=== PATIENT | male | born 1960 | race African-American/Black ===

== ENCOUNTER → 2017-02-08 | Outpatient (CLI) | payer BC ==
[2015-10-10 08:10] VITALS: BP 138/90
[~2017-02-08] MED LIST: AMLO1TAB14 PO; ASPI-482 PO; CYAN10005 PO; GABA-585 PO; GABA-586 PO; GLIM4TAB2 PO; IOHEXOL 240 MG/ML 50ML VIAL. PO ONE; METF10002 PO; NAPR500T8 PO; SAXA5TAB PO; SIMV40TA3 PO
--- NOTE | 2017-02-08 11:40 | RAD ---
Examination: CT chest abdomen pelvis without IV contrast and with oral contrast History: History of follow-up colon cancer Comparison: 01/23/2016 Technique: Axial CT images of the chest abdomen pelvis were performed without IV contrast and with oral contrast. PQRS Compliance Statement: One or more of the following individualized dose reduction techniques were utilized for this examination: 1. Automated exposure control 2. Adjustment of the mA and/or kV according to patient size 3. Use of iterative reconstruction technique Findings: The visualized thyroid gland grossly appears unremarkable. The central airways are patent. Diffuse coronary artery calcifications identified. No evidence of pericardial effusion. Calcified granuloma identified in the left lower lobe lung grossly appears similar to prior exam, otherwise the lungs are clear. No evidence of free air noted in the abdomen. The evaluation of solid organs is limited lack of IV contrast. The visualized noncontrasted liver, spleen, and adrenals grossly appears unremarkable. The gallbladder is mildly distended. The stomach is mildly distended. The pancreas demonstrates mild fatty atrophic changes. The small bowel is nondilated. The appendix is normal. Feces and gas noted in the colon. There is some minimal fat stranding identified in the region of the rectum probably prior treatment changes grossly similar to prior exam. The gallbladder is mildly distended. No radiologically significant retroperitoneal or pelvic lymphadenopathy visualized. No evidence of intrarenal collecting system calculi or hydronephrosis. Mild degenerative disease identified in thoracic spine. Impression: 1. No evidence of metastatic disease. 2. Mild stranding identified about the rectum, grossly similar to prior exam likely prior treatment changes.
== END | disposition home or self-care (01) ==
LOC: CT 09:30
PROVIDERS: ATTEND Internal Medicine Hematology & Oncology
DX: C20 Malignant neoplasm of rectum (principal)
CPT/HCPCS: 71250; 74176

== ENCOUNTER → 2020-04-08 | Outpatient (CLI) | payer BC ==
[2017-09-26 16:30] VITALS: BP 175/100
[~2020-04-08] MED LIST changes: +CYAN-25 PO; -CYAN10005 PO; -GABA-586 PO; +GABA300C18 PO; -GLIM4TAB2 PO; +GLIM4TAB8 PO; +HYDR-2145 PO; -IOHEXOL 240 MG/ML 50ML VIAL. PO ONE; -METF10002 PO; +METF10007 PO; +SIMV40TA18 PO; -SIMV40TA3 PO
--- NOTE | 2020-04-08 12:22 | RAD ---
MR#: [id number] Date of Study: 04/08/2020 Ordering Physician: KIANA ALFORD, Referring Physician: KIANA ALFORD, Tech: AIMEE Light, RDMS, RVT APPROVED REPORT Patient Location: OUT-PATIENT Indications PAD, HTN, DM Findings Bilateral ankle-brachial indices were obtained. Right brachial 130, left brachial 117 Right ankle 142, left ankle 140 Right GILMAR 1.1, left GILMAR 1.1 Critical Notification Critical Value: No <Conclusion> 1. Normal bilateral GILMAR Signed by : Kiana Alford, Electronically Approved : 04/08/2020 12:21:27
--- NOTE | 2020-04-08 12:23 | RAD ---
MR#: [id number] Date of Study: 04/08/2020 Ordering Physician: KIANA ALFORD, Referring Physician: KIANA ALFORD, Tech: AIMEE Light, RDMS, Rvt APPROVED REPORT Patient Location: OUT-PATIENT Laterality:Bilateral Indications PAD, DM, HTN Doppler Spectral Velocity Analysis Right Left pCCA 87/15 cm/spCCA 119/26 cm/s mCCA 87/23 cm/smCCA 97/22 cm/s dCCA 82/17 cm/sdCCA 63/17 cm/s pICA 62/13 cm/spICA 55/23 cm/s Melinda 85/19 cm/smICA 83/31 cm/s dICA 76/33 cm/sdICA 71/32 cm/s Vert. 57/ cm/sVert. 53/ cm/s ICA/CCA 0.98ICA/CCA 0.70 Findings Grossly no significant abnormalities on grayscale images of the bilateral common carotid, internal an d external carotid vessels. Patient is bilateral ICA to CCA ratios are within normal limits. Bilateral vertebral velocities are antegrade. Spectral waveforms and color Doppler and velocities are within normal limits. Overall 0 to less than 50% stenosis. Critical Notification Critical Value: No <Conclusion> 1. No significant bilateral carotid occlusive disease. Signed by : Kiana Alford, Electronically Approved : 04/08/2020 12:23:22
== END ==
LOC: US 08:01
PROVIDERS: ATTEND Internal Medicine Cardiovascular Disease
DX: I65.23 Occlusion and stenosis of bilateral carotid arteries (principal); I73.9 Peripheral vascular disease, unspecified; I10 Essential (primary) hypertension; E11.9 Type 2 diabetes mellitus without complications
CPT/HCPCS: 93880; 93922

== ENCOUNTER 2021-06-24 18:13 | Emergency (ER) | payer BC ==
[~2021-06-24] VITALS: Ht 165.1 cm; Wt 102.3 kg
[2021-06-24 18:20] VITALS: BP 183/81
--- NOTE | 2021-06-24 18:37 | PHYS DOC ---
Past Medical History Past Medical History: Cancer, Diabetes-Type II, High Cholesterol, Hypertension Past Surgical History: Cancer Surgery, Other Additional Past Surgical Histo: colon ca two years ago Smoking Status: Former Smoker Alcohol Use: Occasionally Drug Use: None General Adult EDM: Chief Complaint: EYE PROBLEMS HPI: HPI: Patient is a 60 year old male who presents with left eye irritation. Started at 10 AM when he was mowing his lawn, felt like he had something go into his eye. It has been tearing up and has been more red today. Feels like something is stuck under his top eyelid. He went to a fire station and have them examine it and they could not see anything in the eye. He can still see out of the eye okay when he clears the tears out. Review of Systems: Review of Systems: Constitutional: Denies fever or chills. [] Eyes: Denies change in visual acuity. [] HENT: + L eye redness and pain. Denies nasal congestion or sore throat. [] Respiratory: Denies cough or shortness of breath. [] Cardiovascular: Denies chest pain or edema. [] GI: Denies abdominal pain, nausea, vomiting, bloody stools or diarrhea. [] : Denies dysuria. [] Musculoskeletal: Denies back pain or joint pain. [] Integument: Denies rash. [] Neurologic: Denies headache, focal weakness or sensory changes. [] Endocrine: Denies polyuria or polydipsia. [] Lymphatic: Denies swollen glands. [] Psychiatric: Denies depression or anxiety. [] Heart Score: C/O Chest Pain: No Risk Factors: Risk Factors: DM, Current or recent (<one month) smoker, HTN, HLP, family history of CAD, obesity. Risk Scores: Score 0 - 3: 2.5% MACE over next 6 weeks - Discharge Home Score 4 - 6: 20.3% MACE over next 6 weeks - Admit for Clinical Observation Score 7 - 10: 72.7% MACE over next 6 weeks - Early Invasive Strategies Family History: Family History: No pertinent family history Allergies: Allergies: Allergies Coded Allergies Type Severity Reaction Last Updated Verified No Known Drug Allergies 10/10/15 No Physical Exam: PE: Constitutional: Well developed, well nourished, no acute distress, non-toxic appearance. [] HENT: Normocephalic, atraumatic, bilateral external ears normal, oropharynx moist, no oral exudates, nose normal. [] Eyes: Pupils are equal and reactive to light. Some conjunctival irritation on the left. Eyelid is everted and no ocular foreign body is seen. Fluorescein exam [] Neck: Normal range of motion, no tenderness, supple, no stridor. [] Cardiovascular:Heart rate regular rhythm, no murmur [] Lungs & Thorax: Bilateral breath sounds clear to auscultation [] Abdomen: Bowel sounds normal, soft, no tenderness, no masses, no pulsatile masses. [] Skin: Warm, dry, no erythema, no rash. [] Back: No tenderness, no CVA tenderness. [] Extremities: No tenderness, no cyanosis, no clubbing, ROM intact, no edema. [] Neurologic: Alert and oriented X 3, normal motor function, normal sensory function, no focal deficits noted. [] Psychologic: Affect normal, judgement normal, mood normal. [] Current Patient Data: Vital Signs: Vital Signs Date Time Temp Pulse Resp B/P (MAP) Pulse Ox O2 Delivery O2 Flow Rate FiO2 06/24/21 18:20 97.6 92 16 183/81 (113) 98 Room Air 97.6 EKG: EKG: [] Radiology/Procedures: Radiology/Procedures: [] Course & Med Decision Making: Course & Med Decision Making Pertinent Labs and Imaging studies reviewed. (See chart for details) [] Dragon Disclaimer: Dragon Disclaimer: This electronic medical record was generated, in whole or in part, using a voice recognition dictation system. Departure Departure Impression: Primary Impression: Corneal abrasion Disposition: HOME / SELF CARE / HOMELESS Condition: STABLE Referrals: WAYNE MICHAELS MD (PCP) Additional Instructions: You have an abrasion on your cornea, the surface of your eye. These are prone to infection. You will need to use an antibiotic ointment called erythromycin 4 times a day for 5 days to help prevent infection and promote good healing. Your pain should start to get better over the next 2 days. Please follow-up with your primary care doctor on Saturday. If your pain is worsening, your vision worsens, or other new/concerning symptoms arise please return to the emergency department for reevaluation. Scripts Erythromycin Base (Erythromycin) 1 Gm Oint...g. 1 GM OP QID for 5 Days, MISC 1 Refill Apply to L eye 4 times daily. Prov: GELY CONROY MD 06/24/21 GELY CONROY MD Jun 24, 2021 18:37
[2021-06-24] MEDS ORDERED: TETRACAINE 0.5% OPHTH SOLUTION 4ML BOTTLE. OS ONE (19:15)
[2021-06-24] MEDS ORDERED: FLUORESCEIN OPHTH TEST STRIP. OS ONE (19:15)
[2021-06-24] MEDS ORDERED: ERYT1OIN6 OP (19:20)
== END 2021-06-24 19:26 | disposition home or self-care (01) ==
LOC: ER 18:13
DX: S05.02XA Injury of conjunctiva and corneal abrasion without foreign body, left eye, initial encounter (principal); E11.9 Type 2 diabetes mellitus without complications; E78.00 Pure hypercholesterolemia, unspecified; I10 Essential (primary) hypertension; Z87.891 Personal history of nicotine dependence; W22.8XXA Striking against or struck by other objects, initial encounter; Y93.89 Activity, other specified; Y92.89 Other specified places as the place of occurrence of the external cause; Y99.8 Other external cause status
CPT/HCPCS: 99283